=== PATIENT | male | born 1945 ===

== ENCOUNTER 2020-02-18 14:14 | Emergency (ER) | payer BC, MEDICARE ==
--- NOTE | 2020-02-18 14:58 | EDM.PDOC ---
ED HPI GENERAL MEDICAL PROBLEM - General Chief Complaint: Skin Complaint Stated Complaint: BLISTER ON FOOT / INFECTED Time Seen by Provider: 02/18/20 14:45 Source of Information: Reports: Patient History Limitations: Reports: No Limitations - History of Present Illness INITIAL COMMENTS - FREE TEXT/NARRATIVE: Patient is a 75 y/o male with right foot wound and redness x 2 days. It started as a blister and opened up today while patient was out hunting, with purulent drainage. Patient has neuropathy and doesn't feel any pain in his right foot. No fever. - Related Data Allergies Allergy/AdvReac Type Severity Reaction Status Date / Time No Known Allergies Allergy Verified 02/18/20 14:37 Home Meds: Home Meds Diltiazem [Diltiazem XR] 240 mg PO BID 02/18/20 [History] Fenofibrate Nanocrystallized [Fenofibrate] 48 mg PO DAILY 02/18/20 [History] Furosemide 20 mg PO DAILY PRN 02/18/20 [History] Pregabalin 75 mg PO BID 02/18/20 [History] Rosuvastatin [Crestor] 10 mg PO BEDTIME 02/18/20 [History] Warfarin [Coumadin] 2.5 mg PO ASDIRECTED 02/18/20 [History] Warfarin [Coumadin] 5 mg PO ASDIRECTED 02/18/20 [History] atenoloL [Atenolol] 25 mg PO DAILY 02/18/20 [History] Social & Family History - Tobacco Use Tobacco Use Status *Q: Former Tobacco User Years of Tobacco use: 15 Packs/Tins Daily: 1 Used Tobacco, but Quit: Yes Month/Year Tobacco Last Used: 2009 Second Hand Smoke Exposure: No - Caffeine Use Caffeine Use: Reports: Coffee - Recreational Drug Use Recreational Drug Use: No ED ROS GENERAL - Review of Systems Review Of Systems: See Below Constitutional: Reports: No Symptoms HEENT: Reports: No Symptoms Respiratory: Reports: No Symptoms Cardiovascular: Reports: No Symptoms GI/Abdominal: Reports: No Symptoms Skin: Reports: Erythema, Wound Neurological: Reports: No Symptoms Psychiatric: Reports: No Symptoms ED EXAM, SKIN/RASH Exam: See Below Exam Limited By: No Limitations General Appearance: Alert, No Apparent Distress Respiratory/Chest: No Respiratory Distress, No Accessory Muscle Use Extremities: Non-Tender, No Pedal Edema, Normal Capillary Refill Neurological: Alert, Oriented, Normal Cognition Psychiatric: Normal Affect, Normal Mood Skin: Warm, Dry, Erythema, Wound/Incision, Other (Patient with open wound (1.0 cm diameter) with mild purulent drainage; surrounding erythema; no induration; no flunctuance; non-circumferential) Course - Vital Signs Last Recorded V/S: Last Vital Signs Temp 36.4 C 02/18/20 14:33 Pulse 115 H 02/18/20 14:33 Resp 16 02/18/20 14:33 BP 154/87 H 02/18/20 14:33 Pulse Ox 100 02/18/20 14:33 Departure - Departure Time of Disposition: 15:00 Disposition: Home, Self-Care 01 Condition: Good Clinical Impression: Cellulitis Qualifiers: Site of cellulitis: extremity Site of cellulitis of extremity: lower extremity Laterality: right Qualified Code(s): L03.115 - Cellulitis of right lower limb - Discharge Information *PRESCRIPTION DRUG MONITORING PROGRAM REVIEWED*: Not Applicable *COPY OF PRESCRIPTION DRUG MONITORING REPORT IN PATIENT MELISSA: Not Applicable Instructions: Cellulitis, Adult Referrals: PCP,None [Primary Care Provider] - Additional Instructions: Bactrim DS twice daily with a fatty meal x 10 days. Keep foot dry and clean. NO ointment and no peroxide. No soaking foot. Follow up FRIDAY with either PCP or emergency medicine for wound re-check. Return to the ED for fever >102, unable to tolerate fluids, difficulty breathing/swallowing, or worsening redness/swelling. Sepsis Event Note (ED) - Focused Exam Vital Signs: Vital Signs Temp Pulse Resp BP Pulse Ox 02/18/20 14:33 36.4 C 115 H 16 154/87 H 100
== END 2020-02-18 14:55 | disposition home or self-care (01) ==
LOC: LB.ED 14:14
DX: L03.115 Cellulitis of right lower limb (principal); Z79.899 Other long term (current) drug therapy; Z87.891 Personal history of nicotine dependence
CPT/HCPCS: 99283